=== PATIENT | female | born 1940 | race Caucasian/White ===

== ENCOUNTER 2020-06-02 18:06 | Inpatient (IN) | payer MEDICARE ==
[~2020-06-02] VITALS: Ht 172.7 cm; Wt 81.6 kg
[2020-06-02] MEDS ORDERED: KEFLEX500 MG PO (18:35)
[2020-06-02] MEDS ORDERED: LIPITOR40 MG PO (18:35)
[2020-06-02] MEDS ORDERED: POTASSIUM99 M1 PO (18:37)
[2020-06-02] MEDS ORDERED: TORSEMIDE20 MG PO (18:37)
[2020-06-02] MEDS ORDERED: ELIQUIS5 MG PO (18:37)
[2020-06-02] MEDS ORDERED: ZOLOFT50 MG PO (18:47)
[2020-06-02] MEDS ORDERED: MECLIZINE HCL25 MG PO (18:47)
[2020-06-02] MEDS ORDERED: ZESTRIL20 MG PO (18:47)
[2020-06-02 18:48] LABS: INR 1.22 (0.85-1.17); PROTIME 15.3 SECONDS (11.6-15.0)
[2020-06-02 18:50] LABS: BASOPHILS 0.3 % (0-2); EOSINOPHILS 3.9 % (0-7); HEMATOCRIT 21.8 % (36.0-48.0); IMMATURE GRANULOCYTES 0.2 % (0-5); LYMPHOCYTES 19.9 % (15-50); MCH 31.3 pg (26.0-34.0); MCHC 32.1 g/dL (31.0-37.0); MCV 97.3 fL (80.0-100.0); MEAN PLATELET VOLUME 9.9 fL (7.4-10.4); MONOCYTES 15.8 % (2-11); NEUTROPHILS 59.9 % (40-80); PLATELET COUNT 170 10x3/uL (130-400); RBC 2.24 10x6/uL (4.00-5.40); RDW 13.3 % (11.5-14.5); WBC 5.9 10x3/uL (4.8-10.8)
[2020-06-02 18:51] LABS: ANION GAP 8.5 mmol/L (8-16); CARBON DIOXIDE 31.2 mmol/L (21.0-32.0); CREATININE - SERUM 1.2 mg/dL (0.6-1.3); POTASSIUM - SERUM 3.7 mmol/L (3.5-5.1)
--- NOTE | 2020-06-02 18:51 | NUR ---
PT TRANSFERRED FROM [facility], FOR BLOOD TRANSFUSION, PT DENSIES PAIN, PT IS AWAKE AND ALERT. PT IS CONFUSED ON SOME RECENT HISTORY. PT HAS A SUTURED LACERATION TO RIGHT F/A, IV S/L TO LEFT A/C, AND POST OP SHOES TO RIGHT FOOT.
[2020-06-02 18:58] LABS: ALBUMIN 2.9 g/dL (3.4-5.0); BILIRUBIN - TOTAL 1.33 mg/dL (0.2-1.3); PROTEIN - SERUM 6.1 g/dL (6.4-8.2)
--- NOTE | 2020-06-02 19:26 | NUR ---
WHILE FLUSHING IV FOR CT SCAN, IV CATH WAS NOTED TO BE TWISTED AND THE IV WAS D/C WITH CATH INTACT. IV RESITED TO THE LEFT A/C WITH 20 GA X 2 ATTEMPTS
[2020-06-02 20:00] VITALS: BP 127/58
[2020-06-02 21:00] VITALS: BP 122/61
[2020-06-02 22:00] VITALS: BP 133/62
[2020-06-02 23:00] VITALS: BP 137/85
[2020-06-02 23:52] VITALS: BP 167/77; BMI 27.4
[2020-06-03] VITALS: BP 162/79
[2020-06-03 04:00] VITALS: BP 137/74
[2020-06-03 07:16] LABS: BILIRUBIN NEGATIVE (NEGATIVE); GLUCOSE NEGATIVE (NEGATIVE); KETONE NEGATIVE (NEGATIVE); NITRITE NEGATIVE (NEGATIVE); UROBILINOGEN NORMAL (NORMAL)
[2020-06-03 07:17] LABS: BACTERIA FEW /hpf (NEGATIVE); EPITHELIAL CELLS 0-5 /hpf (0-5); RED CELLS - URINE 25-50 /hpf (0-5); WHITE CELLS - URINE 0-5 /hpf (NEGATIVE)
[2020-06-03 08:39] LABS: BASOPHILS 0.3 % (0-2); EOSINOPHILS 5.3 % (0-7); IMMATURE GRANULOCYTES 0.3 % (0-5); LYMPHOCYTES 16.9 % (15-50); MCH 30.8 pg (26.0-34.0); MCHC 33.1 g/dL (31.0-37.0); MEAN PLATELET VOLUME 9.9 fL (7.4-10.4); MONOCYTES 16.7 % (2-11); NEUTROPHILS 60.5 % (40-80); PLATELET COUNT 172 10x3/uL (130-400); RDW 13.9 % (11.5-14.5); WBC 5.8 10x3/uL (4.8-10.8)
[2020-06-03 08:42] LABS: HEMATOCRIT 27.2 % (36.0-48.0); MCV 93.2 fL (80.0-100.0); RBC 2.92 10x6/uL (4.00-5.40)
[2020-06-03 08:51] LABS: ANION GAP 7.6 mmol/L (8-16); CALCIUM 8.4 mg/dL (8.5-10.1); CARBON DIOXIDE 29.1 mmol/L (21.0-32.0); MAGNESIUM - SERUM 2.1 mg/dL (1.8-2.4); PHOSPHOROUS 2.6 mg/dL (2.5-4.9); POTASSIUM - SERUM 3.7 mmol/L (3.5-5.1); THYROID STIMULATING HORMONE 1.65 uIU/mL (0.36-3.74)
--- NOTE | 2020-06-03 09:24 | NUR ---
Rehab Prescreening Consult recieved and the chart has been reviewed. She appears to be a good ARU candidate, but has several consults pending and therapy is on hold until they are completed. Rehab will follow. Ann Peralta RN Clinical Liaison, Rehab
[2020-06-03 10:09] VITALS: BP 179/62
[2020-06-03 11:01] LABS: HEMATOCRIT 27.4 % (36.0-48.0)
[2020-06-03 13:25] VITALS: Ht 172.7 cm; Wt 81.6 kg
[2020-06-03 13:36] VITALS: BP 117/62
[2020-06-03 20:00] VITALS: BP 129/52
[2020-06-03 22:34] LABS: HEMATOCRIT 28.2 % (36.0-48.0); HEMOGLOBIN 9.5 g/dL (12-16)
[2020-06-04 04:00] VITALS: BP 123/72
[2020-06-04 07:08] LABS: HEMATOCRIT 27.2 % (36.0-48.0); HEMOGLOBIN 9.2 g/dL (12-16); LYMPHOCYTES 16.1 % (15-50); MCH 31.5 pg (26.0-34.0); MCHC 33.8 g/dL (31.0-37.0); MCV 93.2 fL (80.0-100.0); MEAN PLATELET VOLUME 10.1 fL (7.4-10.4); NEUTROPHILS 64.6 % (40-80); PLATELET COUNT 178 10x3/uL (130-400); RBC 2.92 10x6/uL (4.00-5.40); RDW 14.2 % (11.5-14.5); WBC 6.6 10x3/uL (4.8-10.8)
[2020-06-04 07:26] LABS: ANION GAP 11.9 mmol/L (8-16); CALCIUM 8.4 mg/dL (8.5-10.1); CARBON DIOXIDE 25.6 mmol/L (21.0-32.0); CREATININE - SERUM 0.8 mg/dL (0.6-1.3); PHOSPHOROUS 2.5 mg/dL (2.5-4.9); POTASSIUM - SERUM 3.5 mmol/L (3.5-5.1)
--- NOTE | 2020-06-04 07:50 | NUR ---
PT RESTING QUIETLY IN BED WITH EYES CLOSED. AROUSES WHEN HEARS STAFF ENTER ROOM. RESP EVEN AND UNLABORED. O2 @ 2L NC IN PLACE. DENIES PAIN AT THIS TIME. IV TO LEFT AC WITH NS @ 75ML/HR, PROTONIX @ 10ML/HR INFUSING VIA PUMP. SITE WITHOUT REDNESS OR EDEMA. SUTURES INTACT TO RIGHT ARM, SITE WITHOUT EDEMA OR DRAINAGE. DENIES FURTHER NEEDS AT THIS TIME. CL WITHIN REACH. ENCOURAGED TO CALL WITH NEEDS. CONTINUE POC
[2020-06-04 10:13] VITALS: BP 175/62
[2020-06-04 14:34] VITALS: BP 166/82
[2020-06-04 18:44] VITALS: BP 138/69
[2020-06-04 20:00] VITALS: BP 126/67
--- NOTE | 2020-06-04 20:00 | NUR ---
PATIENT RESTING IN CHAIR WATCHING TV. NO C/C OF ACUTE DISTRESS. NO C/O AT THIS TIME. PATIENT HAS LEFT AC, NORMAL SALINE @ 75 ML/HR. IV IS PATENT WIHTOUT REDNESS, SWELLING, OR TENDERNESS. PATIENT HAS STITCHES ON RIGHT ARM. PATIENT HAS BRUISING ALL OVER BUTTOCKS AND HIPS. CALL LIGHT WITHIN REACH. WILL CONTINUE TO MONITOR.
[2020-06-05 04:00] VITALS: BP 151/70
--- NOTE | 2020-06-05 05:14 | NUR ---
I have reviewed this patient and I concur with the Shift Assessment completed by the Licensed Practical Nurse today this shift.
[2020-06-05 07:06] LABS: BASOPHILS 0.2 % (0-2); EOSINOPHILS 7.3 % (0-7); HEMATOCRIT 27.6 % (36.0-48.0); HEMOGLOBIN 9.1 g/dL (12-16); IMMATURE GRANULOCYTES 0.7 % (0-5); LYMPHOCYTES 17.1 % (15-50); MCH 31.1 pg (26.0-34.0); MCV 94.2 fL (80.0-100.0); MEAN PLATELET VOLUME 9.7 fL (7.4-10.4); MONOCYTES 17.3 % (2-11); NEUTROPHILS 57.4 % (40-80); RBC 2.93 10x6/uL (4.00-5.40); RDW 13.8 % (11.5-14.5); WBC 5.6 10x3/uL (4.8-10.8)
[2020-06-05 07:15] LABS: PLATELET COUNT 218 10x3/uL (130-400)
[2020-06-05 07:36] LABS: CALC OSMOLALITY 280 mosm/kg (275-300); CALCIUM 8.3 mg/dL (8.5-10.1); CARBON DIOXIDE 25.1 mmol/L (21.0-32.0); CHLORIDE - SERUM 106 mmol/L (98-107); CREATININE - SERUM 0.7 mg/dL (0.6-1.3); GLUCOSE 103 mg/dL (74-106); MAGNESIUM - SERUM 2.1 mg/dL (1.8-2.4); PHOSPHOROUS 2.8 mg/dL (2.5-4.9); POTASSIUM - SERUM 3.4 mmol/L (3.5-5.1); SODIUM 139 mmol/L (136-145); UREA NITROGEN 21 mg/dL (7-18); eGFR NON AFRICAN AMERICAN 85 mL/min (90-120)
--- NOTE | 2020-06-05 10:39 | MORECARE ---
CASE MANAGEMENT DISCHARGE SUMMARY PATIENT: EARNESTINE GOLDMAN UNIT: [id number] ADM DATE: 06/02/20 AGE: 79 : 40 SEX: F ROOM/BED: D.2204 AUTHOR: EMILY COBOS PHYSICIAN: REFERRING PHYSICIAN: JOSE CORBETT MD DATE OF SERVICE: 06/05/20 Discharge Plan Patient Name: EARNESTINE GOLDMAN [facility] [facility] 1940 Planned Disposition: Anticipated Discharge Date: Discharge Date: Expected LOS: Initial Reviewer: [id number] Initial Review Date: 06/02/2020 Generated: 06/05/20 11:39 am Comments DCP- Discharge Planning Updated by [id number]: Sonal Couch on 06/05/20 9:[address] CLINICALS FAXED TO [place] ( WHERE THE PATIENT WAS TRANSFERED FROM) TO TRY TO DC BACK TO THEM TO THEIR SWING BED, I FAXED CLINICALS TO [phone] ORALIA GAGNON IS THE TRAFFIC SIGN ERECTION SUPERVISOR HER NUMBER [phone] EXT [phone] External Providers External Provider: [facility] Next Contact Date: Service Request Date: Service Type: Resolution: Reviewer: Comments: Patient Name: EARNESTINE GOLDMAN Page [phone] at 1039 All edits/amendments must be made on the electronic document DICTATION DATE: 06/05/20 1039 RECYCLE DRIVER: ELEUTERIO 06/05/20 1039 RPT#: [id number] DC DATE: STATUS: ADM IN [facility] [address] [place] [address] END OF REPORT
[2020-06-05 10:59] VITALS: BP 169/79
--- NOTE | 2020-06-05 12:57 | CN ---
PATIENT NAME:EARNESTINE GOLDMAN MEDICAL RECORD: [id number] : 40 LOCATION:D.MS Agee2203 ADMIT DATE: 06/02/20 ACCOUNT: [id number] CONSULTING PHYSICIAN: JANENE MA MD REFERRING PHYSICIAN: JOSE CORBETT MD DATE OF CONSULTATION: 06/04/2020 IDENTIFYING DATA: The patient is 79 years old and she is admitted to the hospital on a voluntary basis. CHIEF COMPLAINT: Confusion. HISTORY OF PRESENT ILLNESS: The patient had a recent GI bleed and is referred to us for a higher level of care. She has a complicated medical history that includes a stroke, atrial fibrillation, diabetes, congestive heart failure, and a history of breast cancer. Apparently, she was recently at [facility], but left AMA. Her son who is present and is an excellent historian and a stabilizing factor in her life, tells me that she through the telephone at the doctor because she was mad. In fact, the patient is demanding that I let down the bed rails and help her get to her bed and when I refuse, she is angry. The son wants something done to relieve some of the agitation, this is not his mother. MENTAL STATUS EXAMINATION: She is oriented, cooperative and actually is able to appropriately abstract think. ASSESSMENT: 1. Adjustment disorder with mixed emotional features. 2. Vascular dementia, mild. PLAN: The patient is being treated with a low dose of Seroquel. I am going to change that to Celexa to help with some of her impulsivity. In addition to this, I am going to start her on Namenda. There is no evidence of acute or direct dangerousness. The patient needs some assistance. Apparently, her daughter lives there in [place] with her. I do not see any reason for hospitalization or psychiatric followup, I think seeing her family doctor is sufficient. Her personality is one that is prone to being somewhat dramatic and I think the behaviors are just related to a decrease in her frontal lobe inhibitions. TRANSINT:[id number] Voice Confirmation ID: [id number] DOCUMENT ID: [id number] JANENE MA MD at 1257 CC: [id number] DICTATION DATE: 06/04/20 1623 LASTING MACHINE OPERATOR: 06/05/20 0200 ADM IN [place] [address] [place] [address]
[2020-06-05 13:02] VITALS: BP 130/73
--- NOTE | 2020-06-05 13:33 | NUR ---
NUTRITION F/U CHART REVIEWED. PT ON REG DIET WITH GOOD INTAKE RECENT MEALS. WILL CONTINUE TO HONOR FOOD PREFERENCES, MONITOR PO INTAKE. RD FOLLOWING
[2020-06-05] MEDS ORDERED: CELEXA20 MG PO (14:13)
[2020-06-05] MEDS ORDERED: NAMENDA5 MG PO (14:14)
[2020-06-05] MEDS ORDERED: OMNICEF300 MG PO (14:18)
--- NOTE | 2020-06-05 14:48 | MORECARE ---
CASE MANAGEMENT DISCHARGE SUMMARY PATIENT: EARNESTINE GOLDMAN UNIT: [id number] ADM DATE: 06/02/20 AGE: 79 : 40 SEX: F ROOM/BED: D.2204 AUTHOR: CHANDRIKADOC PHYSICIAN: REFERRING PHYSICIAN: JOSE CORBETT MD DATE OF SERVICE: 06/05/20 Discharge Plan Patient Name: EARNESTINE GOLDMAN Facility: [facility]:[place] : 1940 Planned Disposition: Swing Bed (Medicare Approved) Anticipated Discharge Date: Discharge Date: Expected LOS: Initial Reviewer: [email or web address] Initial Review Date: 06/02/2020 Generated: 06/05/20 3:47 pm Comments DCP- Discharge Planning Updated by [email or web address]: Sonal Couch on 06/05/20 1:[address] PATIENT WILL BE DISCHARGING TO [facility] SWING BED. HER DAUGHTER WILL BE HER SERVICE ADVOCATE CONTACT THERE IMM SIGNED AND TREMAYNE ALSO SIGNED AND PLACED IN CHART DCP- Discharge Planning Updated by [id number]: Sonal Couch on 06/05/20 9:[address] CLINICALS FAXED TO [facility] ( WHERE THE PATIENT WAS TRANSFERED FROM) TO TRY TO DC BACK TO THEM TO THEIR SWING BED, I FAXED CLINICALS TO [phone] ORALIA GAGNON IS THE ALGEBRA TUTOR HER NUMBER [phone] [phone] Coverage Notice Reviewer: [email or web address] Richardson Couch Notice Issued Date-Time: 06/05/2020 14:35 Notice Type: IM Discharge Notice Notice Delivered To: Patient Relationship to Patient: Skiver Heel Tap Name: Delivery Method: HAND - Hand Delivered Sarah Beth Days: Prior Verbal Notification: Recipient Understood Notice: Yes Recipient Signature: Yes Med Rec Note Co-signed by Attending: Coverage Notice Comment: Reviewer: [email or web address] Richardson Couch Notice Issued Date-Time: 06/05/2020 14:35 Notice Type: Patient Choice Letter Notice Delivered To: Patient Relationship to Patient: Skiver Heel Tap Name: Delivery Method: HAND - Hand Delivered Sarah Beth Days: Prior Verbal Notification: Recipient Understood Notice: Yes Recipient Signature: Yes Med Rec Note Co-signed by Attending: Coverage Notice Comment: TREMAYNE FOR SWING BED Last DP export: 06/05/20 9:39 a Patient Name: EARNESTINE GOLDMAN Page [phone] at 1448 All edits/amendments must be made on the electronic document DICTATION DATE: 06/05/201446 LAUNDRY ROUTEMAN: ELEUTERIO 06/05/201446 RPT#: [id number] DC DATE: STATUS: ADM IN [facility] [address] [place] [address] END OF REPORT
--- NOTE | 2020-06-05 20:19 | NUR ---
OT NOTE: PT COMPLETED BED MOB TASKS WITH MIN A. PT COMPLETED SUPINE TO SIT IWHT MIN A. PT COMPLETED FACE/HAND WITH SETUP. 1230-1 JB QIU COTA
--- NOTE | 2020-06-08 11:44 | EC ---
PATIENT:EARNESTINE GOLDMAN DATE OF SERVICE: 06/02/20 SEX: F MEDICAL RECORD: [id number] DATE OF : 40 LOCATION:D.MS [place] AGE OF PATIENT: 79 ADMISSION DATE: 06/02/20 REFERRING PHYSICIAN: INTERPRETING PHYSICIAN: AFTAB BUSTILLOS MD ECHOCARDIOGRAM REPORT ECHO CHARGES 4 ECHO COMPLETE Date: 06/03/20 CLINICAL DIAGNOSIS: DIZZINESS, FALL, SYNCOPE, HX: CHF CHF ECHOCARDIOGRAPHIC MEASUREMENTS (adult normal given) AC root (d.<3.7cm) 2.4 cm LV Septum d (<1.2 cm> 1.0 cm Valve Excursion 1.1 cm LV Septum (systole) 1.7 cm Left Atria (s.<4.0cm> 4.9 cm LVPW d(<1.2cm) 1.0 cm RV (d.<2.3cm) 2.1 cm LVPW (sytole) 1.1 cm LV diastole(<5.6CM) 6.0 cm MV E-F(>70mm/sec) cm LV systole 4.4 cm LVOT Diameter 1.8 cm MV exc.(>10mm) cm Est.ejection fraction (50-75%) % DOPPLER: LVIT cm/sec A 65 cm/sec E 110 cm/sec LA cm/sec RVSP 32.0 mmHg LVOT 133 cm/sec AOP1/2T m/s Asc. Ao 197 cm/sec RVOT 99 cm/sec RA cm/sec PA 92 cm/sec AV Gradient Peak 15.5 mmHg AV Mean 8.8 mmHg AV Area 1.9 cm MV Gradient Peak 4.0 mmHg MV Mean 1.9 mmHg MV Area cm COMMENTS: Fundraising Director: Mallika DE LA TORRE Senior Research Project Manager: 3 Dr. Ferrari TAPE# PACS Pericardial Effusion N DATE OF SERVICE: Adequate 2D, color flow imaging, spectral Doppler, and M-Mode. No LVH. LV internal dimensions are normal. Wall motion is normal. EF is greater than or equal to 55%. Aortic valve is sclerotic. No evidence of stenosis by Doppler interrogation. Left atrium is dilated at 4.9 cm. Mitral valve shows no prolapse. Trivial MR. Right-sided chambers are grossly normal. Mild TR. ECHOCARDIOGRAM REPORT [id number] EARNESTINE GOLDMAN TRANSINT:[id number] Voice Confirmation ID: [id number] DOCUMENT ID: [id number] AFTAB BUSTILLOS MD at 1144 CC: [id number] DICTATION DATE: 06/04/20 1322 CASING RUNNER: 06/04/20 1607 DIS IN 06/05/20 [place] [id number] [place] [id number]
--- NOTE | 2020-06-08 14:30 | MORECARE ---
CASE MANAGEMENT DISCHARGE SUMMARY PATIENT: EARNESTINE GOLDMAN UNIT: [id number] ADM DATE: 06/02/20 AGE: 79 : 40 SEX: F ROOM/BED: D.2204 AUTHOR: CHANDRIKADOC PHYSICIAN: REFERRING PHYSICIAN: JOSE CORBETT MD DATE OF SERVICE: 06/08/20 Discharge Plan Patient Name: EARNESTINE GOLDMAN Facility: [facility]:[place] : 1940 Planned Disposition: Swing Bed (Medicare Approved) Anticipated Discharge Date: Discharge Date: 06/05/2020 Expected LOS: Initial Reviewer: [email or web address] Initial Review Date: 06/02/2020 Generated: 06/08/20 3:30 pm Comments DCP- Discharge Planning Updated by [email or web address]: Sonal Couch on 06/05/20 1:[address] PATIENT WILL BE DISCHARGING TO [facility] SWING BED. HER DAUGHTER WILL BE HER SHEET ROCK INSTALLER THERE IMM SIGNED AND TREMAYNE ALSO SIGNED AND PLACED IN CHART DCP- Discharge Planning Updated by [email or web address]: Sonal Couch on 06/05/20 9:[address] CLINICALS FAXED TO [facility] ( WHERE THE PATIENT WAS TRANSFERED FROM) TO TRY TO DC BACK TO THEM TO THEIR SWING BED, I FAXED CLINICALS TO [phone] ORALIA GAGNON IS THE SCHEDULING ANALYST HER NUMBER [phone] EXT [phone] Coverage Notice Reviewer: [email or web address] Richardson Couch Notice Issued Date-Time: 06/05/2020 14:35 Notice Type: IM Discharge Notice Notice Delivered To: Patient Relationship to Patient: Film Replacement Orderer Name: Delivery Method: HAND - Hand Delivered Sarah Beth Days: Prior Verbal Notification: Recipient Understood Notice: Yes Recipient Signature: Yes Med Rec Note Co-signed by Attending: Coverage Notice Comment: Reviewer: [id number] Richardson Couch Notice Issued Date-Time: 06/05/2020 14:35 Notice Type: Patient Choice Letter Notice Delivered To: Patient Relationship to Patient: Film Replacement Orderer Name: Delivery Method: HAND - Hand Delivered Sarah Beth Days: Prior Verbal Notification: Recipient Understood Notice: Yes Recipient Signature: Yes Med Rec Note Co-signed by Attending: Coverage Notice Comment: TREMAYNE FOR SWING BED Last DP export: 06/05/20 1:48 p Patient Name: EARNESTINE GOLDMAN Page [phone] at 1430 All edits/amendments must be made on the electronic document DICTATION DATE: 06/08/201429 ORBITREAD OPERATOR: ELEUTERIO 06/08/20 143 RPT#: [id number] DC DATE:06/05/20 STATUS: DIS IN [facility] [address] [place] [address] END OF REPORT
== END 2020-06-05 15:38 | disposition home or self-care (01) | DRG 377 ==
LOC: D.ER 18:06 → D.MS 21:48
PROVIDERS: Family Medicine; Internal Medicine Gastroenterology; ADMIT Family Medicine; ATTEND Family Medicine
PROC: 0DJ08ZZ Inspection of Upper Intestinal Tract, Via Natural or Artificial Opening Endoscopic (ICD-10-PCS; principal; 2020-06-03 15:00)
DX: K92.2 Gastrointestinal hemorrhage, unspecified (principal); G93.41 Metabolic encephalopathy; S22.069A Unspecified fracture of T7-T8 vertebra, initial encounter for closed fracture; S22.079A Unspecified fracture of T9-T10 vertebra, initial encounter for closed fracture; D64.9 Anemia, unspecified; W19.XXXA Unspecified fall, initial encounter; Z79.01 Long term (current) use of anticoagulants; E78.5 Hyperlipidemia, unspecified; I50.9 Heart failure, unspecified; K21.0 Gastro-esophageal reflux disease with esophagitis; K44.9 Diaphragmatic hernia without obstruction or gangrene; M25.552 Pain in left hip; M16.11 Unilateral primary osteoarthritis, right hip; F01.50 Vascular dementia, unspecified severity, without behavioral disturbance, psychotic disturbance, mood disturbance, and anxiety; F43.20 Adjustment disorder, unspecified; M79.671 Pain in right foot